=== PATIENT | female | born 1995 | race Caucasian/White ===

== ENCOUNTER 2021-07-07 16:02 | Emergency (ER) | payer OTHER, MEDICAID, SELFPAY ==
[2021-07-07 16:10] VITALS: BP 114/78; PULSE 93; RESP 17; TEMP 36.4; O2SAT 98; BMI 20.3
[2021-07-07 16:11] VITALS: O2SAT 98
[2021-07-07 16:12] VITALS: BP 105/72; PULSE 88
[2021-07-07 16:30] VITALS: BP 105/60; PULSE 88; RESP 18; O2SAT 97
--- NOTE | 2021-07-07 16:40 | ED_ITS ---
HPI - Recheck/Abnormal Lab/Rx General Chief Complaint: Recheck/Abnormal Lab/Rx Stated Complaint: Blood in stool/bump in rectum Time Seen by Provider: 07/07/21 16:32 Source: patient Mode of arrival: Ambulatory Limitations: no limitations History of Present Illness HPI narrative: The patient has perianal pain. She felt a tearing sensation yesterday. There was mild bleeding. She has no associated abdominal pain. Her appetite is normal. The tearing sensation of pain occurred when she was bearing down hard to have a bowel movement. There is no persistent bleeding. She denies a perianal lump that is painful. She says the lump was not previously present. There is no drainage from the lump. She has no fever or chills. She has no history of hemorrhoids. She has no urinary symptoms. She has no chronic GI problems. She is compliant with medications for depression. Related Data Home Medications Medication Instructions Recorded Confirmed buspirone 5 mg tablet 5 mg PO DAILY 07/07/21 07/07/21 chlorthalidone 15 mg tablet mg 07/07/21 fluoxetine 40 mg capsule 40 mg PO DAILY 07/07/21 07/07/21 loratadine 10 mg tablet (Claritin) 10 mg PO DAILY 07/07/21 07/07/21 potassium citrate 10 mEq (1,080 10 meq PO DAILY 07/07/21 07/07/21 mg) tablet,extended release Previous Rx's Medication Instructions Recorded docusate sodium 50 mg capsule 50 mg PO BID #60 cap 07/07/21 (Colace Clear) Allergies Allergy/AdvReac Type Severity Reaction Status Date / Time Sulfa (Sulfonamide Allergy Severe Anaphylaxis Verified 07/07/21 16:14 Antibiotics) Review of Systems Review of Systems ROS Unobtainable: All systems reviewed & are unremarkable except as noted in HPI and below Patient History Medical History (Updated 07/07/21 @ 16:48 by Eduardo Lilly MD) Depression Social History Smoking Status: Never smoker Smoking Status: Never smoker alcohol intake frequency: other Substance Use Type: does not use Exam Initial Vital Signs Initial Vital Signs: Vital Signs Temperature 97.5 F L 07/07/21 16:10 Pulse Rate 93 H 07/07/21 16:10 Respiratory Rate 17 07/07/21 16:10 Blood Pressure 114/78 07/07/21 16:10 Pulse Oximetry 98 07/07/21 16:10 Const General: cooperative, healthy appearing and anxious [facility] Head: normocephalic and atraumatic GI Inspection: normal to inspection Palpation: soft, No mass and No tender Auscultation: normal bowel sounds Other: Large perianal skin tag apparently with recent hemorrhage. No local fevers. No abscesses. No source of infection. No active bleeding. Course Course Course Narrative: The patient has a perianal skin tag that may be conducive to removal. I suggested she contact her PCM regarding surgical consultation. Vital Signs Vital signs: Vital Signs - 8 hr 07/07/21 16:10 07/07/21 16:11 07/07/21 16:12 Temperature 97.5 F L Pulse Rate 93 H 88 Respiratory Rate 17 Blood Pressure 114/78 105/72 Pulse Oximetry 98 98 07/07/21 16:30 Temperature Pulse Rate 88 Respiratory Rate 18 Blood Pressure 105/60 Pulse Oximetry 97 Discharge Plan Departure Patient Disposition: Home Clinical Impression: Anal skin tag Instructions: Radha Activity Restrictions/Additional Instructions: You have a large perianal skin tag. Contact your primary care doctor about arranging a surgical consult. The surgeon may remove the skin tag if you wish. Avoid constipation. Be sure you are drinking plenty of water and on a high- fiber diet. Colace 2 times daily as needed as a stool softener. Return here as needed. Prescriptions: New Colace Clear 50 mg capsule 50 mg PO BID Qty: 60 0RF No Action fluoxetine 40 mg capsule 40 mg PO DAILY 0RF Label Comments: TAKE ONE CAPSULE BY MOUTH ONE TIME DAILY buspirone 5 mg tablet 5 mg PO DAILY 0RF Label Comments: TAKE ONE TABLET BY MOUTH TWICE DAILY chlorthalidone 15 mg Tablet 0RF potassium citrate 10 mEq (1,080 mg) tablet extended release 10 meq PO DAILY 0RF Label Comments: TAKE ONE TABLET BY MOUTH THREE TIMES DAILY with meals loratadine [Claritin] 10 mg Tablet 10 mg PO DAILY 0RF Referrals: Crys Villa DO [Primary Care Provider] -
== END 2021-07-07 17:02 | disposition home or self-care (01) ==
PROVIDERS: Emergency Provider Emergency Medicine; PCP Family Medicine
DX: K64.4 Residual hemorrhoidal skin tags (principal)
CPT/HCPCS: 99281